=== PATIENT | female | born 1985 | race Caucasian/White ===

== ENCOUNTER → 2017-08-17 | Outpatient (CLI) | payer OTHER | LOC: BRMIMAGING 14:49 | PROVIDERS: ATTEND Internal Medicine | DX: M54.2 Cervicalgia (principal); M54.6 Pain in thoracic spine; M51.36 Other intervertebral disc degeneration, lumbar region; M25.522 Pain in left elbow; M25.521 Pain in right elbow | CPT/HCPCS: 72052-PO; 72070-PO; 72114-PO; 73080-PO ==